=== PATIENT | female | born 1955 | race Caucasian/White ===

== ENCOUNTER 2016-06-27 22:24 | Emergency (ER) | payer SELFPAY ==
[~2016-06-27] VITALS: Ht 149.9 cm; Wt 64.9 kg
[2016-06-27 22:29] VITALS: BP 124/77
--- NOTE | 2016-06-28 01:24 | NUR ---
PATIENT LEFT WITHOUT BEING SEEN BY DR. ALLEN. NO FURTHER CARE PROVIDED FOR PATIENT.
[2016-10-20] MEDS ORDERED: TYLENOL325 M1 PO (13:43)
[2016-10-20] MEDS ORDERED: METFOMIN HYDRO850 MG PO (13:43)
[2016-10-20] MEDS ORDERED: COLACE100 MG PO (13:43)
[2016-10-20] MEDS ORDERED: CLEOCIN HCL300 MG PO (13:43)
[2016-10-20] MEDS ORDERED: BD LACTINEX1.4 MG PO (13:43)
[2016-10-20] MEDS ORDERED: LEVAQUIN750 MG PO (13:43)
[2016-10-20] MEDS ORDERED: FERROUS GLUCON324 MG PO ×2 (14:10→14:13)
== END 2016-06-28 01:24 | disposition left against medical advice (07) ==
LOC: MED 22:24
DX: R10.9 Unspecified abdominal pain (principal); Z53.21 Procedure and treatment not carried out due to patient leaving prior to being seen by health care provider

== ENCOUNTER 2016-07-06 21:06 | Emergency (ER) | payer SELFPAY ==
[~2016-07-06] VITALS: Ht 149.9 cm; Wt 63.0 kg
[2016-07-06 21:25] VITALS: BP 126/60
--- NOTE | 2016-07-06 23:10 | NUR ---
PATIENT PRESENTS TO ED WITH RT FLANK PAIN FOR 1 WEEK NOW, . PT DENIES N/V/D; SKIN IS PINK/WARM/DRY; AAOX4 WITH EVEN AND STEADY GAIT; LUNGS CLEAR BL; HR EVEN AND REGULAR; PT DENIES ANY FEVER, CP, SOB, OR COUGH AT THIS TIME; PATIENT STATES PAIN OF 8/10 AT THIS TIME; VSS; PATIENT POSITIONED FOR COMFORT; HOB ELEVATED; BEDRAILS UP X2; BED DOWN. ER MD MADE AWARE OF PT STATUS.
--- NOTE | 2016-07-06 23:10 | NUR ---
Patient to bed 06.
--- NOTE | 2016-07-06 23:12 | NUR ---
Dr. Solano evaluating patient at bedside.
[2016-07-06] MEDS ORDERED: KETOROLAC 60 MG/2 ML VIAL IM ONE (23:20)
--- NOTE | 2016-07-06 23:20 | NUR ---
VERBAL ORDER FROM DR WOLF TO GIVE 60MG IVP TORADOL INSTEAD OF IM, BC PT BLOOD SUGAR WAS 443
[2016-07-06 23:50] LABS: APPEARANCE,URINE CLEAR (CLEAR); BILIRUBIN,URINE NEGATIVE (NEGATIVE); BLOOD, URINE TRACE-I (NEGATIVE); COLOR,URINE YELLOW (YELLOW); LEUKOCYTE ESTERASE ,URINE NEGATIVE (NEGATIVE); NITRITE, URINE NEGATIVE (NEGATIVE); PROTEIN,URINE NEGATIVE (NEGATIVE); UGLUCOSE 3+ (NEGATIVE); UROBILINOGEN,URINE 0.2 EU/dL (0.2 - 1)
[2016-07-07 00:02] LABS: ALBUMIN 2.6 g/dL (3.4-5.0); ANION GAP 10.7 (8-16); CALCIUM 8.2 mg/dL (8.5-10.1); CARBON DIOXIDE 28.4 mmol/L (21-32); CREATININE 0.7 mg/dL (0.6-1.3); MAGNESIUM 1.9 mg/dL (1.8-2.4); POTASSIUM 4.1 mmol/L (3.5-5.1); TOTAL BILIRUBIN 0.3 mg/dL (0.0-1.0)
[2016-07-07 00:02] LABS: BACTERIA,URINE OCCASSIONAL /HPF (None Seen); RBC,URINE 0-5 (RARE) /HPF (0-5)
[2016-07-07 00:03] LABS: SQUAMOUS EPITHELIAL CELL,UR 4-10 (MOD) /LPF (0-3 (FEW))
[2016-07-07 00:11] LABS: MEAN CORPUSCULAR HEMOGLOBIN 15 pg (27-31); MEAN CORPUSCULAR VOLUME 53 fL (80-94)
[2016-07-07 00:14] LABS: HEMATOCRIT 21.2 % (36-48); MEAN CORPUSCULAR HGB CONC 29 g/dL (33-37); RED BLOOD CELL COUNT(AUTO) 4.02 MIL/uL (4.20-5.40); WHITE BLOOD COUNT (AUTO) 7.4 K/uL (4.8-10.8)
[2016-07-07 00:15] LABS: PLATELET COUNT (AUTO) 479 K/uL (140-450); RED CELL DISTRIBUTION WIDTH 20.5 % (11.6-13.7)
[2016-07-07 00:16] LABS: HEMOGLOBIN 6.1 g/dL (12.0-16.0)
--- NOTE | 2016-07-07 00:16 | NUR ---
PER LAB, HEMAGLOBIN 6.1, HEMATOCRIT 21.2; I MADE THIS KNOWN TO DR. WOLF.
[2016-07-07 00:17] LABS: ANISOCYTOSIS 2+; BASOPHILS % (MANUAL) 1 % (0-2); EOSINOPHILS % (MANUAL) 1 % (0-4); HYPOCHROMASIA 3+; LYMPHOCYTES % (MANUAL) 15 % (20-46); MONOCYTES % (MANUAL) 5 % (5-12); NEUTROPHILS % (MANUAL) 78 (43-65)
[2016-07-07] MEDS ORDERED: KETOROLAC 30 MG/ML VIAL IVP ONE (01:00)
[2016-07-07] MEDS ORDERED: NACL 0.9% 1,000 ML IV ONE (01:00)
[2016-07-07] MEDS ORDERED: INSULIN HUMAN REGULAR 100 UNITS/ML 10 ML VIAL IVP ONE (01:00)
--- NOTE | 2016-07-07 02:19 | NUR ---
IV removed, catheter intact and site benign. Applied folded 4x4 gauze and tape to stop bleeding.
[2016-07-07 02:20] VITALS: BP 122/71
--- NOTE | 2016-07-07 02:20 | NUR ---
Patient discharged with v/s stable. Written and verbal after care instructions given and explained. Patient alert, oriented and verbalized understanding of instructions. Ambulatory with steady gait. All questions addressed prior to discharge. ID band removed. Patient advised to follow up with PMD. Rx of PEPCID 40MG, METFORMIN 500MG, FERROUS SULFATE 325MG given. Patient educated on indication of medication including possible reaction and side effects. Opportunity to ask questions provided and answered.
== END 2016-07-07 02:20 | disposition home or self-care (01) ==
LOC: MED 21:06
DX: R10.13 Epigastric pain (principal); D50.9 Iron deficiency anemia, unspecified; E11.65 Type 2 diabetes mellitus with hyperglycemia; Z90.49 Acquired absence of other specified parts of digestive tract; Z98.890 Other specified postprocedural states
CPT/HCPCS: 36415; 76705; 80053; 81001; 82948; 83690; 83735; 85025; 87086; 96361; 96374; 96375; 99285; J1815; J1885; J7030; Q0092

== ENCOUNTER 2016-08-30 22:28 | Emergency (ER) | payer MEDICAID ==
[~2016-08-30] VITALS: Ht 157.5 cm; Wt 67.1 kg
[2016-08-30 22:36] VITALS: BP 135/63
--- NOTE | 2016-08-31 00:57 | NUR ---
PATIENT TO OF
--- NOTE | 2016-08-31 01:00 | NUR ---
Yevgeniy hess in [facility] - 08/31/16 at 0241 by MEDDCV PATIENT TO ER BED 5.
--- NOTE | 2016-08-31 01:09 | NUR ---
PATIENT BEING EVALUATED BY DR. SKINNER.
[2016-08-31] MEDS ORDERED: NACL 0.9% 1,000 ML IV ONE (01:10)
[2016-08-31] MEDS ORDERED: KETOROLAC 30 MG/ML VIAL IVP ONE (01:10)
--- NOTE | 2016-08-31 02:00 | NUR ---
PATIENT TO ER BED 5.
--- NOTE | 2016-08-31 02:03 | NUR ---
61 Y/O F W/C/O R UPPER ABD PAIN X 1 MTH ON AND OFF. DENIES ANY N/V/D. S/S OF PAIN NOTED ER MADE AWARE.
[2016-08-31] MEDS ORDERED: cefTRIAXone 1,000 MG VIAL ONE (02:11)
[2016-08-31 04:19] VITALS: BP 126/61
--- NOTE | 2016-08-31 04:19 | NUR ---
Patient discharged with v/s stable. Written and verbal after care instructions given and explained. Patient alert, oriented and verbalized understanding of instructions. Ambulatory with steady gait. All questions addressed prior to discharge. ID band removed. Patient advised to follow up with PMD OR RETURN TO ER IF CONDITION WORSENS. Rx of CIPRO AND NAPROSYN given. Patient educated on indication of medication including possible reaction and side effects. Opportunity to ask questions provided and answered.
[2016-10-20] MEDS ORDERED: LEVAQUIN750 MG PO (13:43)
[2016-10-20] MEDS ORDERED: COLACE100 MG PO (13:43)
[2016-10-20] MEDS ORDERED: CLEOCIN HCL300 MG PO (13:43)
[2016-10-20] MEDS ORDERED: METFOMIN HYDRO850 MG PO (13:43)
[2016-10-20] MEDS ORDERED: BD LACTINEX1.4 MG PO (13:43)
[2016-10-20] MEDS ORDERED: TYLENOL325 M1 PO (13:43)
[2016-10-20] MEDS ORDERED: FERROUS GLUCON324 MG PO ×2 (14:10→14:13)
== END 2016-08-31 04:19 | disposition home or self-care (01) ==
LOC: MED 22:28
DX: N39.0 Urinary tract infection, site not specified (principal); R03.0 Elevated blood-pressure reading, without diagnosis of hypertension; E11.9 Type 2 diabetes mellitus without complications
CPT/HCPCS: 36415; 80053; 81001; 85025; 87086; 96365; 96375; 99284; J0696; J1885; J7030; J7060

== ENCOUNTER 2016-10-18 21:00 | Inpatient (IN) | payer MEDICAID ==
[~2016-10-18] VITALS: Ht 149.9 cm; Wt 68.5 kg
[2016-10-18 21:08] VITALS: BP 117/60
--- NOTE | 2016-10-18 22:15 | NUR ---
PATIENT TO ER BED 4
--- NOTE | 2016-10-18 22:20 | NUR ---
61 Y/O F W/C/O R UPPER ABD / BACK PAIN, SLIGLTY DIZZINESS IN MORNINGS X 2 MTHS. PT STATES WAS REFERRED BY PMD TO RECEIVED A BLOOD TRASFUSION D/T LOW HEMOGLOBIN. DENIES ANY SOB, VSS. ER MADE AWARE.
--- NOTE | 2016-10-18 22:42 | NUR ---
Dr. Rodriguez evaluating patient at bedside.
[2016-10-18 23:38] LABS: APPEARANCE,URINE CLEAR (CLEAR); BILIRUBIN,URINE NEGATIVE (NEGATIVE); BLOOD, URINE NEGATIVE (NEGATIVE); COLOR,URINE YELLOW (YELLOW); LEUKOCYTE ESTERASE ,URINE NEGATIVE (NEGATIVE); NITRITE, URINE NEGATIVE (NEGATIVE); PROTEIN,URINE 2+ (NEGATIVE); UGLUCOSE NEGATIVE (NEGATIVE); UROBILINOGEN,URINE 0.2 EU/dL (0.2 - 1)
[2016-10-18 23:49] LABS: MEAN CORPUSCULAR HEMOGLOBIN 16 pg (27-31); MEAN CORPUSCULAR HGB CONC 29 g/dL (33-37); MEAN CORPUSCULAR VOLUME 55 fL (80-94); PLATELET COUNT (AUTO) 577 K/uL (140-450); RED BLOOD CELL COUNT(AUTO) 3.62 MIL/uL (4.20-5.40); RED CELL DISTRIBUTION WIDTH 19.4 % (11.6-13.7); WHITE BLOOD COUNT (AUTO) 6.2 K/uL (4.8-10.8)
[2016-10-18 23:54] LABS: ALBUMIN 2.5 g/dL (3.4-5.0); ANION GAP 8.7 (8-16); CALCIUM 8.2 mg/dL (8.5-10.1); CARBON DIOXIDE 30.4 mmol/L (21-32); CREATININE 0.7 mg/dL (0.6-1.3); HEMOGLOBIN 5.9 g/dL (12.0-16.0); POTASSIUM 4.1 mmol/L (3.5-5.1); TOTAL BILIRUBIN 0.2 mg/dL (0.0-1.0)
[2016-10-18 23:59] LABS: ANISOCYTOSIS 1+; BASOPHILS % (MANUAL) 1 % (0-2); EOSINOPHILS % (MANUAL) 8 % (0-4); HYPOCHROMASIA 3+; LYMPHOCYTES % (MANUAL) 31 % (20-46); MONOCYTES % (MANUAL) 7 % (5-12); NEUTROPHILS % (MANUAL) 53 (43-65)
[2016-10-19 00:03] LABS: RBC,URINE 0-5 (RARE) /HPF (0-5); SQUAMOUS EPITHELIAL CELL,UR 4-10 (MOD) /LPF (0-3 (FEW))
[2016-10-19 00:04] LABS: BACTERIA,URINE 1+ /HPF (None Seen); HYALINE CASTS, URINE 0-10 /LPF (None Seen)
--- NOTE | 2016-10-19 00:07 | NUR ---
PT RESTING IN BED, VSS. AWATING FOR RESULTS. NO S/S OF DISTRESS NOTED AT THE MOMENT.
--- NOTE | 2016-10-19 01:17 | NUR ---
PT RESTING IN BED,VSS. NO S/S OF DISTRESS NOTED AT THE MOMENT. CONTINUES ON MONITOR. LAB CALLED TO F/U ON BLOOD. PER TURRET LATHE TENDER SOMEONE WILL CALL BACK WHEN BLOOD READY. ER NOTIFIED.
[2016-10-19] MEDS ORDERED: MORPHINE SULFATE 2 MG/ML SYR IVP PRN (01:55)
[2016-10-19] MEDS ORDERED: HYDROcodone/APAP 7.5/325 MG 1 TAB PO PRN (01:55)
[2016-10-19] MEDS ORDERED: ONDANSETRON 4 MG/2 ML VIAL IM/IVP PRN (01:55)
[2016-10-19] MEDS ORDERED: NACL 0.9% 1,000 ML IV SCH (01:55)
[2016-10-19] MEDS ORDERED: DOCUSATE SODIUM 100 MG GELCAP PO PRN (01:55)
[2016-10-19] MEDS ORDERED: ACETAMINOPHEN 325 MG TAB PO PRN (01:55)
[2016-10-19] MEDS ORDERED: FERRIC GLUCONATE 125 MG in NACL 0.9% 100 ML IV SCH ×2 (01:55→15:00)
[2016-10-19] MEDS ORDERED: LACTULOSE 20 GM/30 ML UDC PO ONE (01:55)
--- NOTE | 2016-10-19 01:55 | NUR ---
Cephulac po times one dose scheduled for 0155 not given because patient was still in Emergency Department at this time. Patient arrived to Tele unit at 0330 and next dose is at 5am dose is too close.Will administer the 5am dose.
--- NOTE | 2016-10-19 02:02 | NUR ---
BLOOD TRASFUSION INITIATED. VERIFIED BY ROBERTO CARLOS ROLON RN, AND ME PRIMARY NURSE.
--- NOTE | 2016-10-19 02:20 | NUR ---
PT RESTING IN BED, VSS. NO S/S OF DISTRESS NOTED SO FAR, VERBALIZED NO INCREASED IN LOW BACK PAIN. WILL CONT TO MONITOR.
--- NOTE | 2016-10-19 02:34 | NUR ---
VSS REMAIN STABLE, NO S/S OF DSITRESS NOTED AT THE MOMENT. WILL CONT TO MONITOR.
--- NOTE | 2016-10-19 02:42 | NUR ---
Patient will be admitted to care of DR CATES. Admited to TELEMETRY. Will go to room 111. Belongings list completed. Report to NARENDRA SPENCER RN.
[2016-10-19] MEDS ORDERED: IBUPROFEN 600 MG TAB PO ONE (02:50)
--- NOTE | 2016-10-19 03:15 | NUR ---
PT RESTING IN BED RESIDENT MD EVALUATING PT AT BEDSIDE. NO S/S OF DISTRESS NOTED SO FAR.
--- NOTE | 2016-10-19 03:16 | NUR ---
CALLED RECEIVED FROM NANCY DOLL RECEIVING RN IN TELEMETRY FLOOR. PER FOOR NURSE, SHE IS READY TO RECEIVE PT ON FLOOR. CHARGE NURSE NOTIFIED.
[2016-10-19] MEDS ORDERED: INSULIN LISPRO SLIDING SCALE 100 UNITS/ML VIAL SUBQ PRN (03:25)
--- NOTE | 2016-10-19 03:26 | NUR ---
PT TAKEN TO TELEMETRY FLOOR BY NANCY CHUN AND LUDA LOPEZ VIA MICHELL. HOT TAMALE WORKER IN BED. NO S/S OF DISTRESS NOTED UPON TRASFER.
--- NOTE | 2016-10-19 03:30 | NUR ---
Patient's Plan of Care was discussed and reviewed with GAUTAM: TASHA
--- NOTE | 2016-10-19 03:30 | NUR ---
PATIENT ARRIVED TO THE FLOOR IN A GURNEY WITH FIRST UNIT OF BLOOD ONGOING. ADMIT DX ABD PAIN.PATIENT IS AWARE ALERT ORIENTED SPEAKS MOSTLY SAO TOMEAN UNDERSTANDS VERY LITTLE BENGALI.PATIENT LET US DO SKIN ASSESSMENT WITH DRILL HAND NURSE GIOVANNY AND PATIENT SKIN IS CURRENTLY INTACT.VITALS SIGNS TAKEN AND CURRENTLY WNL PATIENT DENIES ANY SOB OR FEELING DIZZY.PATIENT DENIES ANY HX OF FALLS BUT PLACED ON FALL PRECAUTION DUE TO THE ANEMIA. PATIENT HAS NO COMPLAINS OF PAIN AT THIS TIME.PLAN OF CARE EXPLAINED TO THE PATIENT PATIENT VERBALIZES UNDERSTANDING.PATIENT ORIENTED TO CALL LIGHT AND VISITING HOURS.PATIENT VERBALIZES UNDERSTANDING.
--- NOTE | 2016-10-19 03:35 | NUR ---
MRSA OF THE NARES HAS BEEN COLLECTED WILL BE SEND TO THE LAB.
[2016-10-19 03:43] LABS: PARTIAL THROMBOPLASTIN TIME 23.4 secs (22-35.6); PROTHROMBIN TIME 9.8 secs (10.8-13.4)
--- NOTE | 2016-10-19 04:00 | NUR ---
PATIENT IS CURRENTLY RESTING IN BED EDUCATED ON HOW TO USE THE INCENTIVE SPIROMETER AND THE PURPOSE OF THE INCENTIVE SPIROMETER RETURN DEMO DONE BY THE PATIENT.
[2016-10-19 04:10] LABS: CHOL/HDL RATIO 2.4 (1-4.5); FREE T4 (FREE THYROXINE) 1.03 ng/dL (0.76-1.46); MAGNESIUM 1.9 mg/dL (1.8-2.4); PHOSPHORUS 3.8 mg/dL (2.5-4.9); THYROID STIMULATING HORMONE 2.42 uIU/mL (0.34-3.74)
--- NOTE | 2016-10-19 04:15 | NUR ---
PATIENT PLACED ON SCD'S EDUCATION GIVEN ON SCD'S AND THE IMPORTANCE OF WEARING THEM FOR DVT PAROPHALAXIS PATIENT VERBALIZES UNDERSTANDING.
[2016-10-19] MEDS ORDERED: CLINDAMYCIN 600 MG/4 ML VIAL ONE (04:41)
[2016-10-19 04:50] VITALS: BP 120/56
[2016-10-19] MEDS ORDERED: CLINDAMYCIN 600 MG in DEXTROSE 5% 50 ML IV ONE (05:00)
[2016-10-19] MEDS ORDERED: SODIUM CHLORIDE FLUSH 10 ML SYR IVF SCH (05:00)
[2016-10-19] MEDS: LACTULOSE 20 GM/30 ML UDC PO SCH ×3 (05:33→20:21)
--- NOTE | 2016-10-19 05:40 | NUR ---
RESIDENT JOHANA AWARE AND INFORM THAT PATIENT IS GETTING SECOND UNIT OF BLOOD AND ASKED IF SHE STILL WANTS LAB DRAWS NOW OR TWO HOURS AFTER BLOOD TRANSFUSION.MD AGREED TO DO BLOOD DRAW TWO HOURS POST SECOND UNIT OF BLOOD.SHOE REPAIRER APPRENTICE AWARE.
--- NOTE | 2016-10-19 05:50 | NUR ---
PATIENT IS CURRENTLY STABLE RESTING IN BED SECOND UNIT OF BLOOD ONGOING NO ADR NOTED VITAL SIGNS CURRENTLY STABLE.
--- NOTE | 2016-10-19 06:07 | NUR ---
RESIDENT JOHANA INFORMED THAT PATIENT DOESN'T HAVE ORDER FOR ACCUCHECKS SAID SHE PUT THE ORDER IN.WILL FOLLOW UP.
--- NOTE | 2016-10-19 06:35 | NUR ---
PATIENT BLOOD SUGAR CHECK DONE RESULT IS 99 PATIENT CONTINUES TO BE WELL NO ADR FROM BLOOD TRANSFUSION.PATIENT DENIES PAIN.WILL CONTINUE TO MONITOR.
--- NOTE | 2016-10-19 07:04 | NUR ---
PATIENT STABLE REPORT ENDORSED TO NANCY STEWART.SHE WILL RESUME CARE OF THE PATIENT.
--- NOTE | 2016-10-19 07:10 | NUR ---
RECEIVED REPORT FROM NANCY FERNANDEZ. PT IS RESTING IN BED, A/OX4, AMBULATORY, SKIN IS INTACT, PT HAS IV ON RT AC, SECOND UNIT OF BLOOD INFUSING AT THIS TIME, IV ALSO ON THE RT FA, PATENT, INTACT, FLUSHING WELL, NO S/S OF RESPIRATORY DISTRESS OR DISCOMFORT NOTED, SAFETY/FALL PRECAUTIONS ARE IN PLACE, DISCUSSED PLAN OF CARE WITH PT, PT VERBALIZED UNDERSTANDING, CALL LIGHT IS WITHIN REACH, WILL CONTINUE TO MONITOR.
[2016-10-19] MEDS ORDERED: BUDESONIDE 0.25 MG/2 ML NEBU INH SCH (07:30)
[2016-10-19] MEDS: IPRATROPIUM 0.02% 0.5 MG/2.5 ML NEBU INH SCH ×2 (07:31→10:27)
[2016-10-19] MEDS: ALBUTEROL 0.083% 2.5 MG/3 ML NEBU INH SCH ×2 (07:31→10:27)
[2016-10-19 08:00] VITALS: BP 120/63
--- NOTE | 2016-10-19 08:11 | NUR ---
CALLED [employer] AT [phone], I REACHED THEIR VOICEMAIL I LET THEM KNOW I WAS CALLING FROM [facility] REGARDING A PATIENT WHO THIS MORNING, I ASKED THEM TO PLEASE GIVE ME A CALL, I LEFT MY NAME, CALL BACK NUMBER WITH MY EXTENSION. Addendum: 10/19/16 at 0816 by Anna Gill RN WRONG PATIENT, THIS ENTRY DOES NOT APPLY TO THIS PATIENT.
--- NOTE | 2016-10-19 08:50 | NUR ---
PATIENT'S BLOOD TRANSFUSION COMPLETED AT THIS TIME. PT TOLERATED WELL NO S/S OF RESPIRATORY DISTRESS OR DISCOMFORT NOTED, CALL LIGHT WITHIN REACH, WILL CONTINUE TO MONITOR.
[2016-10-19] MEDS: LACTOBACILLUS RHAMNOSUS GG 1 EACH CAP PO SCH (09:01)
--- NOTE | 2016-10-19 09:05 | NUR ---
DUE MEDICATIONS GIVEN AT THIS TIME, CALL LIGHT WITHIN REACH, WILL CONTINUE TO MONITOR.
--- NOTE | 2016-10-19 11:30 | NUR ---
PT SLEEPING IN BED AT THIS TIME, CALL LIGHT WITHIN REACH.
[2016-10-19 12:00] VITALS: BP 113/57
[2016-10-19 12:11] LABS: HEMATOCRIT 25.1 % (36-48); HEMOGLOBIN 7.6 g/dL (12.0-16.0); MEAN CORPUSCULAR HEMOGLOBIN 19 pg (27-31); MEAN CORPUSCULAR HGB CONC 30 g/dL (33-37); MEAN CORPUSCULAR VOLUME 62 fL (80-94); PLATELET COUNT (AUTO) 501 K/uL (140-450); RED BLOOD CELL COUNT(AUTO) 4.05 MIL/uL (4.20-5.40); RED CELL DISTRIBUTION WIDTH 30.1 % (11.6-13.7); WHITE BLOOD COUNT (AUTO) 6.8 K/uL (4.8-10.8)
[2016-10-19 12:33] LABS: ALBUMIN 2.3 g/dL (3.4-5.0); ANION GAP 10.5 (8-16); CALCIUM 7.8 mg/dL (8.5-10.1); CARBON DIOXIDE 25.1 mmol/L (21-32); CREATININE 0.6 mg/dL (0.6-1.3); POTASSIUM 3.6 mmol/L (3.5-5.1); TOTAL BILIRUBIN 0.2 mg/dL (0.0-1.0); TOTAL PROTEIN, SERUM 7.2 g/dL (6.4-8.2)
[2016-10-19 12:49] LABS: ANISOCYTOSIS 1+; BAND % (MANUAL) 0 % (0-8); BASOPHILS % (MANUAL) 0 % (0-2); EOSINOPHILS % (MANUAL) 0 % (0-4); LYMPHOCYTES % (MANUAL) 19 % (20-46); MONOCYTES % (MANUAL) 7 % (5-12); NEUTROPHILS % (MANUAL) 74 (43-65); PLATELET ESTIMATE ADEQUATE
--- NOTE | 2016-10-19 13:27 | NUR ---
CARTOGRAPHY PROFESSOR IS AT PATIENT'S BEDSIDE.
--- NOTE | 2016-10-19 13:30 | NUR ---
RECEIVED CALL FROM PHARMACY THEY WERE CALLING BECAUSE TO CLARIFY AN ORDER THAT WAS ENTERED LAST NIGHT FOR FERROUS GLUCONATE AND WAS STILL PENDING, NUMBER OF DOSES WAS MISSING. I WENT AHEAD AND LET THE RESIDENT DOCTOR KNOW, SHE SAID SHE WOULD FIX IT.
[2016-10-19] MEDS ORDERED: ALBUTEROL 0.083% 2.5 MG/3 ML NEBU INH PRN (13:55)
[2016-10-19] MEDS ORDERED: BUDESONIDE 0.25 MG/2 ML NEBU INH PRN (13:55)
[2016-10-19] MEDS ORDERED: IPRATROPIUM 0.02% 0.5 MG/2.5 ML NEBU INH PRN (14:00)
--- NOTE | 2016-10-19 15:25 | NUR ---
PT IS RESTING IN BED, NO S/S OF RESPIRATORY DISTRESS OR DISCOMFORT NOTED, CALL LIGHT WITHIN REACH.
[2016-10-19 16:00] VITALS: BP 123/61
[2016-10-19] MEDS: BLOOD GLUCOSE MONITORING 1 DEV DEV FS SCH ×2 (16:40→20:23)
--- NOTE | 2016-10-19 17:25 | NUR ---
PT IS RESTING IN BED WATCHING TV, CALL LIGHT IS WITHIN REACH.
--- NOTE | 2016-10-19 19:15 | NUR ---
ENDORSED PT TO LVN. LAVON FOR CONTINUITY OF CARE. PT STABLE AT THIS TIME.
--- NOTE | 2016-10-19 19:16 | NUR ---
ALERT PT, UP WALKING IN HALLWAY. NO DISTRESS/SOB/WHEEZING NOTED AT THIS TIME. NO INDICATION FOR HHN PRN TX
--- NOTE | 2016-10-19 19:17 | NUR ---
PATIENT IS CURRENTLY AWAKE ALERT WAS WALKING AROUND THE NURSES STATION EARLIER AROUND THE HALLWAY NOW SHE IS BACK IN HER ROOM.PATIENT DENIES PAIN AND DISCOMFORT AT THIS TIME. PATIENT STATES I WAS ABLE TO HAVE TWO BOWEL MOVEMENTS TODAY.PATIENT HAS NO COMPLAINS OF SOB PATIENT CONTINUES TO BE ENCOURAGED TO USE THE INCENTIVE SPIROMETER.CALL LIGHT WITHIN REACH.
--- NOTE | 2016-10-19 19:20 | NUR ---
Patient's Plan of Care was discussed and reviewed with RAILROAD REPAIRER: LAVON CORDOVA
[2016-10-19 20:00] VITALS: BP 127/66
--- NOTE | 2016-10-19 20:25 | NUR ---
PATIENT EDUCATED ON THE IMPORTANCE OF TAKING HER ROUTINE MEDICATION PATIENT VERBALIZES UNDERSTANDING AND TOOK HER ROUTINE MEDICATION.
[2016-10-20] VITALS: BP 114/66
--- NOTE | 2016-10-20 00:05 | NUR ---
PATIENT IS CURRENTLY SLEEPING IN BED NO DISTRESS WILL CONTINUE TO MONITOR.CALL LIGHT WITHIN REACH.
--- NOTE | 2016-10-20 02:27 | NUR ---
PATIENT IS CURRENTLY SLEEPING IN BED.
--- NOTE | 2016-10-20 03:35 | NUR ---
PATIENT IS CURRENTLY AWAKE WENT TO THE BATHROOM AND BACK TO BED.PATIENT DENIES PAIN AT THIS TIME.NEEDS MET.
[2016-10-20 04:00] VITALS: BP 130/68
[2016-10-20] MEDS: LACTULOSE 20 GM/30 ML UDC PO SCH (05:00)
[2016-10-20 06:01] LABS: ANION GAP 13.3 (8-16); CALCIUM 8.3 mg/dL (8.5-10.1); CARBON DIOXIDE 24.2 mmol/L (21-32); CREATININE 0.6 mg/dL (0.6-1.3); POTASSIUM 3.5 mmol/L (3.5-5.1)
--- NOTE | 2016-10-20 06:05 | NUR ---
PATIENT RESTING COMFORTABLY IN BED IN NO DISTRESS WILL CONTINUE TO MONITOR.
[2016-10-20 06:14] LABS: BASOPHILS # (AUTO) 0.1 K/uL (0.00-0.22); BASOPHILS % (AUTO) 1.2 % (0.0-2.0); EOSINOPHILS # (AUTO) 0.2 K/uL (0-0.4); EOSINOPHILS % (AUTO) 2.6 % (0.0-4.0); HEMATOCRIT 29.6 % (36-48); HEMOGLOBIN 8.9 g/dL (12.0-16.0); MEAN CORPUSCULAR HEMOGLOBIN 19 pg (27-31); MEAN CORPUSCULAR HGB CONC 30 g/dL (33-37); MEAN CORPUSCULAR VOLUME 63 fL (80-94); MONOCYTES # (AUTO) 0.5 K/uL (0.8-1.0); MONOCYTES % (AUTO) 6.1 % (1.7-9.3); NEUTROPHILS # (AUTO) 5.5 K/uL (1.8-7.7); NEUTROPHILS % (AUTO) 66.1 % (42.2-75.2); RED BLOOD CELL COUNT(AUTO) 4.69 MIL/uL (4.20-5.40)
[2016-10-20] MEDS: BLOOD GLUCOSE MONITORING 1 DEV DEV FS SCH ×2 (06:28→11:58)
--- NOTE | 2016-10-20 06:48 | NUR ---
PATIENT HAS BEEN SCREENED AND CATEGORIZED HIGH NUTRITION RISK. PATIENT WILL BE SEEN WITHIN 1-2 DAYS OF ADMISSION. 10/19/16-10/20/16 LOBO FINNEY MS, RDN
[2016-10-20 07:07] LABS: PLATELET COUNT (AUTO) 561 K/uL (140-450)
[2016-10-20 07:08] LABS: WHITE BLOOD COUNT (AUTO) 8.3 K/uL (4.8-10.8)
[2016-10-20 07:09] LABS: ANISOCYTOSIS 1+; HYPOCHROMASIA 1+; OVALOCYTES 1+; POIKILOCYTOSIS 1+
[2016-10-20 07:10] LABS: ROULEAU 1+
--- NOTE | 2016-10-20 07:32 | NUR ---
PATIENT STABLE REPORT ENDORSED AT BEDSIDE TO NANCY RUEDA SHE WILL RESUME CARE OF THE PATIENT.
--- NOTE | 2016-10-20 07:33 | NUR ---
PT AWAKE AND ALERT, BURUNDIAN SPEAKING. NO SIGNS OF ACUTE DISTRESS. ON ROOM AIR. BOWEL SOUNDS ACTIVE IN ALL 4 QUADRANTS. BOWEL AND BLADDER CONTINENCE. SKIN INTACT. AMBULATORY WITH BRP. PATIENT DENIES PAIN AT THIS TIME. RE-ORIENTED PATIENT TO HOSPITAL AND TO UNIT, PT VERBALIZED UNDERSTANDING. BED IN LOW POSITION WITH BILATERAL HALF SIDE RAILS UP, CALL LIGHT WITHIN REACH.
[2016-10-20 08:00] VITALS: BP 102/55
[2016-10-20] MEDS: LACTOBACILLUS RHAMNOSUS GG 1 EACH CAP PO SCH (09:00)
[2016-10-20 10:01] LABS: T4 (THYROXINE) 8.8 ug/dL (4.5-12.0)
[2016-10-20 12:00] VITALS: BP 121/65
[2016-10-20] MEDS ORDERED: LACTULOSE 20 GM/30 ML UDC PO PRN (12:30)
--- NOTE | 2016-10-20 12:30 | NUR ---
PT SEEN BY DR PARRA, NO NEW ORDERS AT THIS TIME.
[2016-10-20] MEDS ORDERED: [UNRECOGNIZED DRUG - CODE] PO (13:43)
[2016-10-20] MEDS ORDERED: DOCU-264 PO (13:43)
[2016-10-20] MEDS ORDERED: LEVO750T2 PO (13:43)
[2016-10-20] MEDS ORDERED: ACET-2619 PO (13:43)
[2016-10-20] MEDS ORDERED: LACT1.4C PO (13:43)
[2016-10-20] MEDS ORDERED: CLIN300C2 PO (13:43)
--- NOTE | 2016-10-20 14:00 | NUR ---
RECEIVED DISCHARGE ORDER, NOTED, WILL CARRY OUT.
[2016-10-20] MEDS ORDERED: FERR324T11 PO ×2 (14:10→14:13)
[2016-10-20 16:00] VITALS: BP 106/59
--- NOTE | 2016-10-20 16:45 | NUR ---
PT AWAKE AND ALERT, NO SIGNS OF ACUTE DISTRESS. EDUCATED PATIENT ON DISCHARGE INSTRUCTIONS INCLUDING SIGNS AND SYMPTOMS OF WORSENING CONDITION, FOLLOW UP WITH PCP WITHIN 3 DAYS, NEW PRESCRIPTIONS AND INFORMATION ON ANEMIA AND PYELONEPHRITIS. PT VERBALIZED UNDERSTANDING. CUT OFF WRIST BANDS AND TOOK OFF TELE MONITOR. D/C'D BOTH IVS. PATIENT DENIES PAIN. ESCORTED PATIENT OUT FRONT LOBBY, TO GO HOME VIA PRIVATE AUTO WITH DAUGHTER.
[2016-10-21 09:10] LABS: HEMOGLOBIN A1C 7.2 % (4.8-5.6)
[2016-10-22 06:27] LABS: FOLIC ACID 13.1 ng/mL (>3.0)
== END 2016-10-20 16:45 | disposition home or self-care (01) | DRG 137 ==
LOC: MED 21:00 → MIC 10-19 02:04 → MTU 10-19 02:27
PROVIDERS: ADMIT Student in an Organized Health Care Education/Training Program; ATTEND Student in an Organized Health Care Education/Training Program
PROC: 30233N1 Transfusion of Nonautologous Red Blood Cells into Peripheral Vein, Percutaneous Approach (ICD-10-PCS; principal; 2016-10-19)
PROC: B246ZZZ Ultrasonography of Right and Left Heart (ICD-10-PCS; 2016-10-20)
DX: J69.0 Pneumonitis due to inhalation of food and vomit (principal); N17.0 Acute kidney failure with tubular necrosis; E43 Unspecified severe protein-calorie malnutrition; D68.59 Other primary thrombophilia; E11.40 Type 2 diabetes mellitus with diabetic neuropathy, unspecified; E11.65 Type 2 diabetes mellitus with hyperglycemia; M06.9 Rheumatoid arthritis, unspecified; M43.16 Spondylolisthesis, lumbar region; M47.896 Other spondylosis, lumbar region; K56.41 Fecal impaction; R91.1 Solitary pulmonary nodule; J98.11 Atelectasis; D50.9 Iron deficiency anemia, unspecified; R80.9 Proteinuria, unspecified; K21.9 Gastro-esophageal reflux disease without esophagitis; Z98.51 Tubal ligation status; Z90.49 Acquired absence of other specified parts of digestive tract; Z87.891 Personal history of nicotine dependence; Z68.30 Body mass index [BMI] 30.0-30.9, adult
CPT/HCPCS: 36415; 71010; 80048; 80053; 81001; 82150; 82607; 82728; 82746; 82948; 83036; 83540; 83690; 83735; 83880; 84100; 84436; 84439; 84443; 84479; 84484; 85025; 85045; 85610; 85730; 86886; 86900; 86901; 86920; 87081; 87086; 93005; 93925; 93970; 94640; 99285; J3490; J7030; J7060; J7613; J7626; J7644; P9016; Q0092

== ENCOUNTER 2017-09-02 18:26 | Inpatient (IN) | payer MEDICAID ==
[~2017-09-02] VITALS: Ht 152.4 cm; Wt 80.7 kg
[~2017-09-02 18:26] MED LIST: ACET-2619 PO; CLIN300C2 PO; DOCU-300 PO; FERR324T11 PO; LACT1.4C PO; LEVO750T2 PO; [UNRECOGNIZED DRUG - CODE] PO
[2017-09-02 18:45] VITALS: BP 126/62
[2017-09-02] MEDS ORDERED: NACL 0.9% 1,000 ML IV ONE (19:05)
[2017-09-02] MEDS ORDERED: INSULIN REGULAR, HUMAN 100 UNIT/ML VIAL SUBQ ONE (19:05)
--- NOTE | 2017-09-02 19:05 | NUR ---
1ST BS 5[address] BS [address] GILLILAND NOTIFIED
--- NOTE | 2017-09-02 19:49 | NUR ---
62Y/F C/O RUQ AND URINARY FREQUENCY X1 WEEK. ABD IS ROUND, SOFT, TENDER TO RUQ, ACTIVE BS X4. NORMAL BM . PT STATES SHE HAS BEEN USING THE RESTROOM EVERY 30MIN AT HOME FOR PAST WEEK. PT DENIES ANY OTHER UTI SYMPTOMS THAN FREQUENCY. PT IS LAYING IN BED, COMFORT NEEDS MET, WILL CONTINUE TO MONITOR.
[2017-09-02 20:00] LABS: APPEARANCE,URINE CLEAR (CLEAR); BILIRUBIN,URINE NEGATIVE (NEGATIVE); BLOOD, URINE TRACE-L (NEGATIVE); COLOR,URINE YELLOW (YELLOW); LEUKOCYTE ESTERASE ,URINE NEGATIVE (NEGATIVE); NITRITE, URINE NEGATIVE (NEGATIVE); UGLUCOSE 2+ (NEGATIVE)
[2017-09-02 20:15] LABS: RBC,URINE 3-10 (FEW) /HPF (0-5); WBC,URINE 0-5 (RARE) /HPF (0-5)
[2017-09-02 20:34] LABS: ACETONE, SERUM NEGATIVE (NEGATIVE)
[2017-09-02 20:39] LABS: ALBUMIN 2.6 g/dL (3.4-5.0); ANION GAP 11.7 (8-16); ASPARTATE AMINOTRANSFERASE 11 U/L (15-37); CARBON DIOXIDE 26.2 mmol/L (21-32); CHLORIDE 96 mmol/L (98-107); GFR ARICAN-AMERICAN 73 mL/min (>90); POTASSIUM 3.9 mmol/L (3.5-5.1); SODIUM SERUM 130 mmol/L (136-145); TOTAL BILIRUBIN 0.3 mg/dL (0.0-1.0); UREA NITROGEN, BLOOD 20 mg/dL (7-18)
[2017-09-02 20:43] LABS: GLUCOSE 634 mg/dL (74-106)
[2017-09-02 21:07] LABS: BASOPHILS # (AUTO) 0.1 K/uL (0.00-0.22); BASOPHILS % (AUTO) 0.7 % (0.0-2.0); EOSINOPHILS % (AUTO) 0.6 % (0.0-4.0); HEMATOCRIT 24.3 % (36-48); HEMOGLOBIN 7.1 g/dL (12.0-16.0); LYMPHOCYTES # (AUTO) 1.6 K/uL (2.5-16.5); LYMPHOCYTES % (AUTO) 21.1 % (20.5-51.1); MEAN CORPUSCULAR HEMOGLOBIN 17 pg (27-31); MEAN CORPUSCULAR HGB CONC 29 g/dL (33-37); MEAN CORPUSCULAR VOLUME 57.8 fL (80-94); MONOCYTES # (AUTO) 0.5 K/uL (0.8-1.0); MONOCYTES % (AUTO) 6.4 % (1.7-9.3); NEUTROPHILS # (AUTO) 5.3 K/uL (1.8-7.7); NEUTROPHILS % (AUTO) 71.2 % (42.2-75.2); PLATELET COUNT (AUTO) 350 K/uL (140-450); RED BLOOD CELL COUNT(AUTO) 4.21 MIL/uL (4.20-5.40); RED CELL DISTRIBUTION WIDTH 20.3 % (11.6-13.7); WHITE BLOOD COUNT (AUTO) 7.5 K/uL (4.8-10.8)
[2017-09-02] MEDS ORDERED: INSULIN REGULAR, HUMAN 100 UNIT/ML VIAL IVP ONE (21:15)
--- NOTE | 2017-09-02 22:15 | NUR ---
PT SENT TO CT WITH TECH VIA W/C AAOX4 AT THIS TIME
--- NOTE | 2017-09-02 22:27 | NUR ---
BS 390, 8 UNITS IVP GIVEN-NADR AT THIS TIME.
[2017-09-02] MEDS ORDERED: MORPHINE SULFATE 4 MG/ML SYR IVP PRN (23:20)
[2017-09-02] MEDS ORDERED: DOCUSATE SODIUM 100 MG GELCAP PO PRN (23:20)
[2017-09-02] MEDS ORDERED: ONDANSETRON 4 MG/2 ML VIAL IM/IVP PRN (23:20)
[2017-09-02] MEDS ORDERED: ACETAMINOPHEN 325 MG TAB PO PRN (23:20)
[2017-09-02] MEDS ORDERED: HYDROcodone/APAP 7.5/325 MG 1 TAB PO PRN (23:20)
--- NOTE | 2017-09-02 23:44 | NUR ---
Pt transferred to Tele via .
[2017-09-02 23:45] VITALS: BP 119/38
--- NOTE | 2017-09-02 23:45 | NUR ---
ADMITTED A 62F FROM ER. CAME BY ERIN. AMBULATORY . ON GAS PUMPER. CAME DUE TO DM OUT OF CONTROL. FREQUENCY OF URINATION, NAUSEA, WITH RUQ ABDOMINAL PAIN AND SOB. THOUGH PT DENIES ANY SOB A THIS TIME. O2 SAT 98% ON ROOM AIR. SHE SAD SHE HAS ARTHRITIS ON HANDS, LEGS,NECK BUT DENIES ANY PAIN AT THIS TIME. ORIENTED TO HOSPITAL ROUTINES, PLACED COMFORTABLY IN BED. PLACED CALL LIGHT WITHIN EASY REACH. BED ON LOW POSITION. PLAN OF CARE DISCUSSED AN VERBALIZED UNDERSTANDING. WILL FOLLOW UP ADMIT ORDERS. WILL ALSO CONTINUE TO MONITOR.
--- NOTE | 2017-09-02 23:49 | NUR ---
Patient will be admitted to care of DR. PARRA. Admited to TELE. Will go to room 111-B. Belongings list completed. Report to VICK.
[2017-09-03] LABS: PROTHROMBIN TIME 10.4 secs (10.8-13.4)
[2017-09-03 00:07] LABS: CHOL/HDL RATIO 3.5 (1-4.5); MAGNESIUM 1.6 mg/dL (1.8-2.4); PHOSPHORUS 3.5 mg/dL (2.5-4.9); THYROID STIMULATING HORMONE 1.17 uIU/mL (0.34-3.74)
[2017-09-03] MEDS ORDERED: DEXTROSE 50% 50 ML SYR IVP PRN (00:20)
[2017-09-03 00:45] LABS: BARBITURATE, URINE NEG. ng/ml (NEG <=200); BENZODIAZEPINE, URINE NEG. ng/mL (NEG <=200); CANNABINOID, URINE NEG. ng/mL (NEG <=50); COCAINE, URINE NEG. ng/mL (NEG <=300); OPIATE, URINE NEG. ng/mL (NEG <=2000); PHENCYCLIDINE SCREEN,URINE NEG. ng/mL (NEG <=25)
[2017-09-03] MEDS: NACL 0.9% 1,000 ML IV SCH ×3 (01:02→15:56)
--- NOTE | 2017-09-03 01:02 | NUR ---
IVF NS @120 ML /HR JUST STARTED ORDERED.
--- NOTE | 2017-09-03 03:00 | NUR ---
MADE ROUNDS. PT ASLEEP. NO S/S OF ANY DISCOMFORT NOR PAIN NOTED. WILL CONTINUE TO MONITOR.
[2017-09-03 04:30] VITALS: BP 107/39
--- NOTE | 2017-09-03 05:00 | NUR ---
TELE MONITORING DC'D PER MD ORDER. . PT IS NOW MED SURG. WILL STILL CONTINUE TO MONITOR.
[2017-09-03] MEDS ORDERED: SODIUM FERRIC GLUCONATE 12.5 MG/ML AMP IV ONE (05:46)
--- NOTE | 2017-09-03 05:48 | NUR ---
FERRLECIT IVPB STARTED ORDERED X ONE. WILL MONITOR DURING INFUSION.
[2017-09-03] MEDS ORDERED: SODIUM FERRIC GLUCONATE 125 MG in NACL 0.9% 100 ML IV ONE (06:00)
[2017-09-03] MEDS: BLOOD GLUCOSE MONITORING 1 DEV DEV FS SCH ×4 (06:04→21:10)
[2017-09-03] MEDS: INSULIN LISPRO SLIDING SCALE 100 UNITS/ML VIAL SUBQ PRN ×4 (06:11→21:18)
--- NOTE | 2017-09-03 06:11 | NUR ---
BLOOD SUGAR WAS CHECKED RESULT 181, INSULIN COVERAGE GIVEN SUBQ.
[2017-09-03] MEDS: METOCLOPRAMIDE 10 MG TAB PO SCH ×3 (06:23→16:12)
[2017-09-03 07:19] LABS: BASOPHILS # (AUTO) 0.1 K/uL (0.00-0.22); BASOPHILS % (AUTO) 0.8 % (0.0-2.0); EOSINOPHILS # (AUTO) 0.2 K/uL (0-0.4); EOSINOPHILS % (AUTO) 2.8 % (0.0-4.0); HEMATOCRIT 25.1 % (36-48); HEMOGLOBIN 7.4 g/dL (12.0-16.0); LYMPHOCYTES # (AUTO) 2.6 K/uL (2.5-16.5); LYMPHOCYTES % (AUTO) 35.5 % (20.5-51.1); MEAN CORPUSCULAR HEMOGLOBIN 17 pg (27-31); MEAN CORPUSCULAR HGB CONC 29 g/dL (33-37); MEAN CORPUSCULAR VOLUME 57.6 fL (80-94); MONOCYTES # (AUTO) 0.5 K/uL (0.8-1.0); MONOCYTES % (AUTO) 6.5 % (1.7-9.3); NEUTROPHILS % (AUTO) 54.4 % (42.2-75.2); PLATELET COUNT (AUTO) 374 K/uL (140-450); RED BLOOD CELL COUNT(AUTO) 4.36 MIL/uL (4.20-5.40); RED CELL DISTRIBUTION WIDTH 19.9 % (11.6-13.7); WHITE BLOOD COUNT (AUTO) 7.4 K/uL (4.8-10.8)
--- NOTE | 2017-09-03 07:20 | NUR ---
ENDORSED PT IN STABLE CONDITION TO AM NURSE.
--- NOTE | 2017-09-03 07:21 | NUR ---
RECEIVED REPORT FROM THE MEAL MILLER NURSE AT BEDSIDE FOR CONTINUITY OF CARE. PT IS AWAKE AND ORIENTED. INTRODUCED SELF AND UPDATED THE BOARD. PT IS ON MS, AMBULATORY, SKIN INTACT, LBM: 09/01/17, IV ON R FA 22G NS AT 120ML/HR. V/S WITHIN NORMAL RANGE. DENIES ANY PAIN AT THIS TIME. PLAN FOR TODAY: DOPPLER AND ECHO. WILL CONTINUE TO MONITOR PT.
[2017-09-03 07:34] LABS: ANION GAP 12.6 (8-16); CARBON DIOXIDE 23.6 mmol/L (21-32); CREATININE 0.6 mg/dL (0.6-1.3); POTASSIUM 3.2 mmol/L (3.5-5.1)
[2017-09-03 08:20] LABS: MAGNESIUM 1.6 mg/dL (1.8-2.4); PHOSPHORUS 3.2 mg/dL (2.5-4.9)
[2017-09-03] MEDS ORDERED: metFORMIN 850 MG TAB PO SCH (09:00)
[2017-09-03] MEDS: FERROUS GLUCONATE 324 MG TAB PO SCH ×2 (09:14→21:15)
--- NOTE | 2017-09-03 09:21 | NUR ---
ADMINISTERED MORNING MEDS. PT TOLERATED WELL. EATING BREAKFAST. WILL CONTINUE TO MONITOR PT.
--- NOTE | 2017-09-03 09:23 | NUR ---
PATIENT HAS BEEN SCREENED AND CATEGORIZED HIGH NUTRITION RISK. PATIENT WILL BE SEEN WITHIN 1-2 DAYS OF ADMISSION. 09/03/17 09/04/[address]
--- NOTE | 2017-09-03 10:15 | NUR ---
NOTIFIED MD OF LOW K LEVEL 3.2. AWARE.
[2017-09-03 10:45] VITALS: BP 135/53
--- NOTE | 2017-09-03 11:31 | NUR ---
ADMINISTERED SCHEDULED MED. CHECKED HER BLOOD SUGAR 294. WILL BE BACK WITH INSULIN COVERAGE. PT TOLERATED WELL.
[2017-09-03] MEDS ORDERED: glipiZIDE 5 MG TAB PO SCH (12:00)
[2017-09-03] MEDS ORDERED: POTASSIUM CHLORIDE 10 MEQ TABER PO SCH (12:00)
--- NOTE | 2017-09-03 12:20 | NUR ---
DR FERGUSON HERE WITH PT. DID A RECTAL EXAM. PT TOLERATED WELL. ORIENTMAYTE STARTED A NEW IV ON R HAND 22G. IV INFUSING WELL. WILL CONTINUE TO MONITOR PT. PT EATING LUNCH NOW.
[2017-09-03] MEDS: MAG SULF 2000 MG/WATER PREMIX 50 ML IV SCH ×2 (12:50→15:02)
[2017-09-03] MEDS: metFORMIN 850 MG TAB PO SCH ×2 (12:53→16:12)
--- NOTE | 2017-09-03 13:00 | NUR ---
ADMINISTERED MAG RIDER /. ADMINISTERED SCHEDULED MEDS. TOLERATING WELL. WILL CONTINUE TO MONITOR PT.
--- NOTE | 2017-09-03 14:46 | NUR ---
09/03/17 RD INITIAL ASSESSMENT COMPLETED PLEASE REFER TO NUTRITION ASSESSMENT UNDER CARE ACTIVITY FOR ESTIMATED NUTRITIONAL NEEDS. 1. CONTINUE CCHO 60 GM DIET TOLERATED 2. PROVIDE PT WITH DIABETES NUTRITION EDUCATION 3. RD TO FOLLOW-UP 3-5 DAYS, MODERATE RISK CARITO AGUIRRE RD
[2017-09-03 16:00] VITALS: BP 135/53
--- NOTE | 2017-09-03 16:15 | NUR ---
ADMINISTERED SCHEDULED MEDS. PT TOLERATED WELL. NO SIGNS OF DISTRESS. WILL CONTINUE TO MONITOR PT.
--- NOTE | 2017-09-03 18:45 | NUR ---
PT VISITING WITH FAMILY. NO SIGNS OF DISTRESS. NO COMPLAINTS AT THIS TIME. WILL CONTINUE TO MONITOR PT.
--- NOTE | 2017-09-03 19:23 | NUR ---
ENDORSE PT TO THE HYDROCHLORIC ACID OPERATOR NURSE AT BEDSIDE FOR CONTINUITY OF CARE. PT IS IN STABLE CONDITION.
--- NOTE | 2017-09-03 19:24 | NUR ---
REPORT RECEIVED FROM AM NURSE. PT IN STABLE CONDITION. WILL CONTINUE TO MONITOR.
--- NOTE | 2017-09-03 21:16 | NUR ---
PM MEDS GIVEN. PT TOLERATED WELL. PT IV ALARMS HIGH PRESSURE FROM IV SITE. WILL CONTINUE TO MONITOR.
--- NOTE | 2017-09-03 23:05 | NUR ---
PT IV SITE INFILTRATED. PT STATES PAIN AT IV SITE. 2 ATTEMPTS WERE MADE PRIOR TO SUCCESSFUL IV INSERTION BY CRISTA ELLIOTT RN.
[2017-09-04] VITALS: BP 111/40
[2017-09-04] MEDS: NACL 0.9% 1,000 ML IV SCH (00:16)
--- NOTE | 2017-09-04 01:21 | NUR ---
IV ACCESS NOT PATENT. NS AT 120ML/HR SHOWING HIGH PRESSURE ALARM. UNABLE TO RUN FLUIDS THROUGH IV ACCESS.
--- NOTE | 2017-09-04 02:41 | NUR ---
LEFT HAND 22G IV INSERTED. PT HAS SLIGHT PAIN AT IV SITE. INSTRUCTIONS TO CALL IF NAGGING PAIN FROM THE SITE DISRUPTS SLEEP. WILL CONTINUE TO MONITOR. Addendum: 09/04/17 at 0244 by Scott Connor RN IV 22G RIGHT FA DC. CANNULA INTACT.
--- NOTE | 2017-09-04 05:00 | NUR ---
PT IS ASLEEP. NOT IN ANY ACUTE DISTRESS. AROUSABLE TO NAME. WILL CONTINUE TO MONITOR.
[2017-09-04 06:16] LABS: T4 (THYROXINE) 6.2 ug/dL (4.5-12.0)
[2017-09-04] MEDS ORDERED: glipiZIDE 5 MG TAB PO SCH (06:30)
[2017-09-04] MEDS: BLOOD GLUCOSE MONITORING 1 DEV DEV FS SCH ×4 (06:41→20:13)
[2017-09-04] MEDS: INSULIN LISPRO SLIDING SCALE 100 UNITS/ML VIAL SUBQ PRN ×4 (06:44→20:16)
[2017-09-04] MEDS: METOCLOPRAMIDE 10 MG TAB PO SCH ×3 (06:46→16:37)
[2017-09-04 07:09] LABS: BASOPHILS # (AUTO) 0.1 K/uL (0.00-0.22); BASOPHILS % (AUTO) 0.8 % (0.0-2.0); EOSINOPHILS # (AUTO) 0.2 K/uL (0-0.4); EOSINOPHILS % (AUTO) 2.9 % (0.0-4.0); HEMATOCRIT 22.1 % (36-48); LYMPHOCYTES % (AUTO) 29.3 % (20.5-51.1); MEAN CORPUSCULAR HEMOGLOBIN 17 pg (27-31); MEAN CORPUSCULAR HGB CONC 30 g/dL (33-37); MEAN CORPUSCULAR VOLUME 57.7 fL (80-94); MONOCYTES # (AUTO) 0.5 K/uL (0.8-1.0); MONOCYTES % (AUTO) 6.6 % (1.7-9.3); NEUTROPHILS # (AUTO) 4.2 K/uL (1.8-7.7); NEUTROPHILS % (AUTO) 60.4 % (42.2-75.2); PLATELET COUNT (AUTO) 317 K/uL (140-450); RED BLOOD CELL COUNT(AUTO) 3.83 MIL/uL (4.20-5.40); RED CELL DISTRIBUTION WIDTH 20.5 % (11.6-13.7); WHITE BLOOD COUNT (AUTO) 6.9 K/uL (4.8-10.8)
[2017-09-04 07:13] LABS: ANION GAP 12.8 (8-16); CARBON DIOXIDE 21.9 mmol/L (21-32); CREATININE 0.7 mg/dL (0.6-1.3); POTASSIUM 3.7 mmol/L (3.5-5.1)
[2017-09-04 07:14] LABS: FOLIC ACID 12.4 ng/mL (>3.0)
[2017-09-04 07:20] LABS: HEMOGLOBIN 6.5 g/dL (12.0-16.0); MAGNESIUM 1.8 mg/dL (1.8-2.4); PHOSPHORUS 3.3 mg/dL (2.5-4.9)
--- NOTE | 2017-09-04 07:30 | NUR ---
RECEIVED PT REPORT FROM THE SURGICAL SERVICES DIRECTOR NURSE AT BEDSIDE. PT IS AWAKE, ALERT AND ORIENTEDX4. PT IS ON MS, AMBULATORY, SKIN INTACT, LBM: 09/03/17, IV ON LEFT HAND 22G, RUNNING NS, PATENT, INTACT, ASYMPTOMATIC. V/S WITHIN NORMAL RANGE. DENIES ANY PAIN AT THIS TIME. SAFETY PRECAUTIONS IN PLACE. WILL CONTINUE TO MONITOR PT.
--- NOTE | 2017-09-04 07:30 | NUR ---
REPORT GIVEN TO AM NURSE. PT IN STABLE CONDITION.
--- NOTE | 2017-09-04 07:39 | NUR ---
RECEIVED CRITICAL LAB RESULT OF H/H=6.5/22.1 AT 0720.EDGAR ROGERS
--- NOTE | 2017-09-04 07:40 | NUR ---
PT IS HEPLOCKED.
[2017-09-04 08:00] VITALS: BP 126/47
[2017-09-04] MEDS ORDERED: INSULIN LANTUS 100 UNITS/ML 10 ML VIAL SUBQ SCH (09:00)
[2017-09-04] MEDS: metFORMIN 850 MG TAB PO SCH ×3 (09:32→16:37)
[2017-09-04] MEDS: FERROUS GLUCONATE 324 MG TAB PO SCH ×2 (09:32→20:14)
[2017-09-04] MEDS ORDERED: POTASSIUM CHLORIDE 10 MEQ TABER PO ONE (12:20)
[2017-09-04] MEDS ORDERED: MAG SULF 2000 MG/WATER PREMIX 100 ML IV ONE (12:20)
--- NOTE | 2017-09-04 12:30 | NUR ---
PT DENIES PAIN AND NAUSEA, NO S/S OF ACUTE DISTRESS.
[2017-09-04] MEDS ORDERED: SODIUM FERRIC GLUCONATE 125 MG in NACL 0.9% 100 ML IV SCH (13:00)
[2017-09-04] MEDS ORDERED: MAGNESIUM OXIDE 400 MG TAB PO SCH (13:00)
[2017-09-04 14:29] LABS: HEMATOCRIT 22.6 % (36-48); MEAN CORPUSCULAR HEMOGLOBIN 17 pg (27-31); MEAN CORPUSCULAR HGB CONC 29 g/dL (33-37); MEAN CORPUSCULAR VOLUME 58.1 fL (80-94); PLATELET COUNT (AUTO) 328 K/uL (140-450); RED BLOOD CELL COUNT(AUTO) 3.88 MIL/uL (4.20-5.40); WHITE BLOOD COUNT (AUTO) 7.5 K/uL (4.8-10.8)
[2017-09-04 14:37] LABS: HEMOGLOBIN 6.6 g/dL (12.0-16.0)
[2017-09-04 16:00] VITALS: BP 122/50
[2017-09-04] MEDS ORDERED: MAGNESIUM CITRATE 300 ML BTL PO SCH (17:00)
--- NOTE | 2017-09-04 17:10 | NUR ---
PT AND HER DAUGHTER WERE TAUGHT HOW TO GIVE INSULIN THRU DEMO AND DISCUSSION. PT AND HER DAUGHTER VERBALIZED UNDERSTANDING.
--- NOTE | 2017-09-04 18:00 | NUR ---
PT HAD A BM AFTER MAGNESIUM CITRATE, OCCULT BLOOD SPECIMEN COLLECTED.
[2017-09-04 18:03] LABS: EOSINOPHILS % (MANUAL) 1 % (0-4); LYMPHOCYTES % (MANUAL) 23 % (20-46); MONOCYTES % (MANUAL) 8 % (5-12)
--- NOTE | 2017-09-04 19:25 | NUR ---
REPORT GIVEN TO APPLICATIONS DEVELOPER NURSE AT BEDSIDE. PT IN STABLE CONDITION.
--- NOTE | 2017-09-04 19:27 | NUR ---
RECEIVED REPORT FROM RN. PT RESTING IN BED. AAOX4. NO S/S OF ACUTE DISTRESS. PT DENIES PAIN. IV SITE PATENT AND INTACT. CALL LIGHT WITHIN REACH. SAFETY MEASURES ENSURED. WILL CONTINUE TO MONITOR.
--- NOTE | 2017-09-04 23:30 | NUR ---
REPORT GIVEN TO NANCY SPENCER.
[2017-09-05] VITALS: BP 122/45
[2017-09-05] MEDS ORDERED: SODIUM FERRIC GLUCONATE 125 MG in NACL 0.9% 100 ML IV SCH (03:45)
[2017-09-05] MEDS ORDERED: SODIUM FERRIC GLUCONATE 12.5 MG/ML AMP IV ONE (04:57)
[2017-09-05 06:22] LABS: BASOPHILS # (AUTO) 0.1 K/uL (0.00-0.22); BASOPHILS % (AUTO) 0.9 % (0.0-2.0); EOSINOPHILS # (AUTO) 0.3 K/uL (0-0.4); EOSINOPHILS % (AUTO) 3.5 % (0.0-4.0); HEMATOCRIT 22.5 % (36-48); LYMPHOCYTES # (AUTO) 2.7 K/uL (2.5-16.5); LYMPHOCYTES % (AUTO) 33.5 % (20.5-51.1); MEAN CORPUSCULAR HEMOGLOBIN 18 pg (27-31); MEAN CORPUSCULAR HGB CONC 30 g/dL (33-37); MEAN CORPUSCULAR VOLUME 58.8 fL (80-94); MONOCYTES # (AUTO) 0.6 K/uL (0.8-1.0); MONOCYTES % (AUTO) 7.9 % (1.7-9.3); NEUTROPHILS # (AUTO) 4.4 K/uL (1.8-7.7); NEUTROPHILS % (AUTO) 54.2 % (42.2-75.2); PLATELET COUNT (AUTO) 335 K/uL (140-450); RED BLOOD CELL COUNT(AUTO) 3.83 MIL/uL (4.20-5.40); WHITE BLOOD COUNT (AUTO) 8.1 K/uL (4.8-10.8)
[2017-09-05] MEDS: METOCLOPRAMIDE 10 MG TAB PO SCH ×3 (06:29→15:56)
[2017-09-05] MEDS: BLOOD GLUCOSE MONITORING 1 DEV DEV FS SCH ×3 (06:33→16:01)
[2017-09-05 06:34] LABS: PHOSPHORUS 3.2 mg/dL (2.5-4.9)
[2017-09-05] MEDS: INSULIN LISPRO SLIDING SCALE 100 UNITS/ML VIAL SUBQ PRN ×3 (06:34→17:44)
[2017-09-05 06:48] LABS: MAGNESIUM 1.8 mg/dL (1.8-2.4)
--- NOTE | 2017-09-05 07:15 | NUR ---
CHANGE OF SHIFT REPORT TIMMY MARTINEZ RN DAY NURSE PT IN STABLE CONDITION
--- NOTE | 2017-09-05 07:30 | NUR ---
RECEIVED PT REPORT FROM THE BULB PLANTER NURSE AT BEDSIDE. PT IS AWAKE, ALERT AND ORIENTEDX4. PT IS ON MS, AMBULATORY, SKIN INTACT, IV ON LEFT HAND 22G, SL, ASYMPTOMATIC. V/S WITHIN NORMAL RANGE. DENIES ANY PAIN AT THIS TIME. SAFETY PRECAUTIONS IN PLACE. WILL CONTINUE TO MONITOR PT.
[2017-09-05 07:50] LABS: HEMOGLOBIN 6.7 g/dL (12.0-16.0)
[2017-09-05 08:00] VITALS: BP 122/47
[2017-09-05 08:38] LABS: ANION GAP 12.9 (8-16); CARBON DIOXIDE 22.9 mmol/L (21-32); CREATININE 0.7 mg/dL (0.6-1.3); POTASSIUM 3.8 mmol/L (3.5-5.1)
[2017-09-05] MEDS ORDERED: MAGNESIUM OXIDE 400 MG TAB PO SCH ×2 (08:49→09:00)
[2017-09-05] MEDS: FERROUS GLUCONATE 324 MG TAB PO SCH (08:59)
[2017-09-05] MEDS: metFORMIN 850 MG TAB PO SCH ×3 (09:00→15:57)
[2017-09-05] MEDS ORDERED: ASCORBIC ACID 500 MG TAB PO SCH (09:00)
[2017-09-05] MEDS ORDERED: ACETAMINOPHEN EXTRA STRENGTH 500 MG TAB PO SCH (09:00)
[2017-09-05] MEDS ORDERED: INSULIN LANTUS 100 UNITS/ML 10 ML VIAL SUBQ SCH (09:06)
[2017-09-05] MEDS ORDERED: LANTUS SUBQ (09:22)
[2017-09-05] MEDS ORDERED: VITC500 PO (09:22)
[2017-09-05] MEDS ORDERED: METF850T PO (09:22)
[2017-09-05] MEDS ORDERED: GLUC-805 FS (09:22)
[2017-09-05] MEDS ORDERED: HUMSLIDE SUBQ (09:22)
[2017-09-05] MEDS ORDERED: METO10TA98 PO (09:22)
[2017-09-05] MEDS ORDERED: FERR324T11 PO (09:24)
--- NOTE | 2017-09-05 09:55 | NUR ---
NEW IV INSERTED TO RIGHT FA 20G FOR BLOOD TRANSFUSION.
--- NOTE | 2017-09-05 14:25 | NUR ---
NOTIFIED DR VILLATORO THAT BLOOD TRANSFUSION HAS BEEN FINISHED.
[2017-09-05 16:00] VITALS: BP 126/57
[2017-09-05 16:00] LABS: BASOPHILS # (AUTO) 0.1 K/uL (0.00-0.22); BASOPHILS % (AUTO) 0.8 % (0.0-2.0); EOSINOPHILS # (AUTO) 0.2 K/uL (0-0.4); EOSINOPHILS % (AUTO) 2.3 % (0.0-4.0); HEMATOCRIT 26.1 % (36-48); HEMOGLOBIN 7.9 g/dL (12.0-16.0); LYMPHOCYTES # (AUTO) 1.9 K/uL (2.5-16.5); LYMPHOCYTES % (AUTO) 23.5 % (20.5-51.1); MEAN CORPUSCULAR HEMOGLOBIN 19 pg (27-31); MEAN CORPUSCULAR HGB CONC 30 g/dL (33-37); MEAN CORPUSCULAR VOLUME 61.9 fL (80-94); MONOCYTES # (AUTO) 0.7 K/uL (0.8-1.0); MONOCYTES % (AUTO) 8.1 % (1.7-9.3); NEUTROPHILS # (AUTO) 5.4 K/uL (1.8-7.7); NEUTROPHILS % (AUTO) 65.3 % (42.2-75.2); PLATELET COUNT (AUTO) 319 K/uL (140-450); RED BLOOD CELL COUNT(AUTO) 4.22 MIL/uL (4.20-5.40); RED CELL DISTRIBUTION WIDTH 24.4 % (11.6-13.7); WHITE BLOOD COUNT (AUTO) 8.3 K/uL (4.8-10.8)
[2017-09-05] MEDS ORDERED: PNEUMOCOCCAL VACCINE 23 MCG/0.5 ML VIAL IMVAC SCH (17:35)
[2017-09-05] MEDS ORDERED: MIDAZOLAM 2 MG/2 ML VIAL ONE (18:29)
--- NOTE | 2017-09-05 18:50 | NUR ---
PT DISCHARGED PER MD ORDER. DISCHARGE INSTRUCTIONS AND MEDICATION TEACHING GIVEN. PT AND HER DAUGHTER VERBALIZED UNDERSTANDING. PT STATED SHE WILL GO TO [facility] FOR RX. RX GIVEN. MADE PT AWARE OF THE SCHEDULED MD APPOINTMENT. IV CATHS REMOVED,TIPS ARE INTACT, PRESSURE APPLIED. PT LEFT WITH ALL HER BELONGINGS AND IN STABLE CONDITION. PT WALKED TO LOBBY WITH JENA AND HER DAUGHTER.
[2017-09-05] MEDS ORDERED: fentaNYL 0.05 MG/ML VIAL ONE (19:05)
[2017-09-06] MEDS ORDERED: INSULIN LANTUS 100 UNITS/ML 10 ML VIAL SUBQ SCH ×2 (09:00)
== END 2017-09-05 18:55 | disposition home or self-care (01) | DRG 425 ==
LOC: MED 18:26 → MTU 23:20
PROVIDERS: ADMIT General Practice; ATTEND General Practice
PROC: 30233N1 Transfusion of Nonautologous Red Blood Cells into Peripheral Vein, Percutaneous Approach (ICD-10-PCS; principal; 2017-09-05)
PROC: 3E0234Z Introduction of Serum, Toxoid and Vaccine into Muscle, Percutaneous Approach (ICD-10-PCS; 2017-09-05)
DX: E87.1 Hypo-osmolality and hyponatremia (principal); N17.0 Acute kidney failure with tubular necrosis; E11.00 Type 2 diabetes mellitus with hyperosmolarity without nonketotic hyperglycemic-hyperosmolar coma (NKHHC); D50.9 Iron deficiency anemia, unspecified; E87.8 Other disorders of electrolyte and fluid balance, not elsewhere classified; E11.65 Type 2 diabetes mellitus with hyperglycemia; E83.42 Hypomagnesemia; E87.6 Hypokalemia; E66.9 Obesity, unspecified; J45.909 Unspecified asthma, uncomplicated; M19.90 Unspecified osteoarthritis, unspecified site; F41.9 Anxiety disorder, unspecified; Z68.34 Body mass index [BMI] 34.0-34.9, adult; Z79.84 Long term (current) use of oral hypoglycemic drugs; Z79.899 Other long term (current) drug therapy; Z90.49 Acquired absence of other specified parts of digestive tract; Z23 Encounter for immunization; E44.1 Mild protein-calorie malnutrition
CPT/HCPCS: 36415; 71045; 80048; 80053; 80305; 81001; 82009; 82150; 82272; 82607; 82728; 82746; 82948; 83036; 83540; 83690; 83735; 83880; 84100; 84436; 84443; 84479; 85025; 85045; 85610; 85730; 86886; 86900; 86901; 86920; 87081; 90732; 93005; 93925; 93970; 99285; J1815; J2250; J2916; J3010; J3475; J7030; J8597; P9016; Q0092; Q0163

== ENCOUNTER 2018-08-22 19:01 | Emergency (ER) | payer MEDICAID, OTHER ==
[~2018-08-22] VITALS: Ht 152.4 cm; Wt 82.1 kg
[~2018-08-22 19:01] MED LIST changes: -ACET-2619 PO; -CLIN300C2 PO; -DOCU-300 PO; +GLUC-805 FS; +HUMSLIDE SUBQ; -LACT1.4C PO; +LANTUS SUBQ; -LEVO750T2 PO; +METF850T PO; +METO10TA98 PO; +VITC500 PO; -[UNRECOGNIZED DRUG - CODE] PO
[2018-08-22 19:08] VITALS: BP 158/74
--- NOTE | 2018-08-22 19:13 | NUR ---
PT AMBULATED TO ER BED 09
--- NOTE | 2018-08-22 19:15 | NUR ---
RECEIVED REPORT FROM NANCY GALLEGOS.
--- NOTE | 2018-08-22 19:20 | NUR ---
63 Y.O. FEMALE, AAO x 4, BIB SELF, W C/O MOUTH PAIN RADIATING TO THE LEFT NECK. LEFT-SIDED FACIAL DROOP SINCE LAST NIGHT. DENIES N/V/D; SKIN IS PINK/WARM/DRY; AAOX4 WITH EVEN AND STEADY GAIT; HR EVEN AND REGULAR; PT DENIES ANY FEVER, CP, SOB, OR COUGH AT THIS TIME; PATIENT STATES PAIN OF 10/10 AT THIS TIME; VSS; PATIENT POSITIONED FOR COMFORT; BED DOWN. ER MD MADE AWARE OF PT STATUS.
--- NOTE | 2018-08-22 19:23 | NUR ---
DR. GILLILAND EVALUATING AT BEDSIDE.
--- NOTE | 2018-08-22 19:28 | NUR ---
PT TAKEN TO CT FOR CODE BRAIN WITH AIMEE CRUZ
--- NOTE | 2018-08-22 19:39 | NUR ---
EMT PERFORMING EKG AT BEDSIDE.
--- NOTE | 2018-08-22 19:39 | NUR ---
PT RETURNED FROM CT. AWAKE, ALERT, ORIENTED X 4. VSS.
--- NOTE | 2018-08-22 19:40 | NUR ---
LAB AT BEDSIDE
[2018-08-22] MEDS ORDERED: ACYCLOVIR 200 MG CAP PO ONE (19:55)
[2018-08-22] MEDS ORDERED: predniSONE 20 MG TAB PO ONE (19:55)
[2018-08-22 19:59] LABS: BASOPHILS % (AUTO) 0.7 % (0.0-2.0); EOSINOPHILS # (AUTO) 0.1 K/uL (0-0.4); EOSINOPHILS % (AUTO) 1.9 % (0.0-4.0); HEMATOCRIT 31.3 % (36-48); HEMOGLOBIN 10.4 g/dL (12.0-16.0); LYMPHOCYTES # (AUTO) 1.6 K/uL (2.5-16.5); LYMPHOCYTES % (AUTO) 26.4 % (20.5-51.1); MEAN CORPUSCULAR HEMOGLOBIN 26 pg (27-31); MEAN CORPUSCULAR HGB CONC 33 g/dL (33-37); MEAN CORPUSCULAR VOLUME 78.9 fL (80-94); MONOCYTES # (AUTO) 0.7 K/uL (0.8-1.0); MONOCYTES % (AUTO) 11.5 % (1.7-9.3); NEUTROPHILS # (AUTO) 3.5 K/uL (1.8-7.7); NEUTROPHILS % (AUTO) 59.5 % (42.2-75.2); PLATELET COUNT (AUTO) 341 K/uL (140-450); RED BLOOD CELL COUNT(AUTO) 3.97 MIL/uL (4.20-5.40); RED CELL DISTRIBUTION WIDTH 15.7 % (11.6-13.7); WHITE BLOOD COUNT (AUTO) 5.9 K/uL (4.8-10.8)
--- NOTE | 2018-08-22 20:05 | NUR ---
STAT HEAD CT IMPRESSION: No acute intracranial abnormality. ERMD NOTIFIED.
[2018-08-22 20:07] LABS: ANION GAP 12.2 (8-16); CARBON DIOXIDE 26.4 mmol/L (21-32); CREATININE 0.7 mg/dL (0.6-1.3); POTASSIUM 3.6 mmol/L (3.5-5.1)
[2018-08-22 20:16] LABS: ALBUMIN 2.2 g/dL (3.4-5.0); TOTAL BILIRUBIN 0.2 mg/dL (0.0-1.0)
[2018-08-22 20:18] LABS: APPEARANCE,URINE CLEAR (CLEAR); BILIRUBIN,URINE NEGATIVE (NEGATIVE); BLOOD, URINE 2+ (NEGATIVE); COLOR,URINE YELLOW (YELLOW); LEUKOCYTE ESTERASE ,URINE NEGATIVE (NEGATIVE); NITRITE, URINE NEGATIVE (NEGATIVE); UGLUCOSE 2+ (NEGATIVE)
[2018-08-22 20:27] LABS: RBC,URINE TOO NUMEROUS TO COUN /HPF (0-5); WBC,URINE 0-5 /HPF (0-5)
--- NOTE | 2018-08-22 20:30 | NUR ---
Patient discharged with v/s stable. Written and verbal after care instructions given and explained. Patient alert, oriented and verbalized understanding of instructions. Ambulatory with steady gait. All questions addressed prior to discharge. ID band removed. Patient advised to follow up with PMD in 2-3 days and return to ER if symptoms worsen. Rx of Prednisone and Valtrex given. Patient educated on indication of medication including possible reaction and side effects. Opportunity to ask questions provided and answered.
[2018-08-22 20:35] VITALS: BP 139/83
== END 2018-08-22 20:30 | disposition home or self-care (01) ==
LOC: MED 19:01
DX: G51.0 Bell's palsy (principal); D64.9 Anemia, unspecified; R03.0 Elevated blood-pressure reading, without diagnosis of hypertension; M54.2 Cervicalgia; E11.9 Type 2 diabetes mellitus without complications; Z79.4 Long term (current) use of insulin; Z79.899 Other long term (current) drug therapy
CPT/HCPCS: 36415; 70450; 71045; 80053; 81001; 84484; 85025; 99284; J7512; Q0092; 93005

== ENCOUNTER 2018-08-24 16:52 | Observation (INO) | payer OTHER ==
[~2018-08-24] VITALS: Ht 152.4 cm; Wt 79.4 kg
[2018-08-24 17:00] VITALS: BP 107/64
--- NOTE | 2018-08-24 17:16 | NUR ---
Patient transferred to bed 10. RN evaluating patient at bedside.
--- NOTE | 2018-08-24 17:24 | NUR ---
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
[2018-08-24] MEDS ORDERED: MORPHINE SULFATE 4 MG/ML SYR IVP ONE (17:35)
[2018-08-24] MEDS ORDERED: GABA300C PO (17:43)
[2018-08-24] MEDS ORDERED: METF1000 PO (17:43)
[2018-08-24] MEDS ORDERED: PRED20TA5 PO (17:43)
[2018-08-24] MEDS ORDERED: VITD1000 PO (17:43)
[2018-08-24] MEDS ORDERED: FERR325E14 PO (17:43)
[2018-08-24] MEDS ORDERED: NAPR-54 PO (17:43)
[2018-08-24] MEDS ORDERED: VALA1TAB2 PO (17:43)
[2018-08-24] MEDS ORDERED: LISI-420 PO (17:43)
[2018-08-24 18:05] LABS: BASOPHILS # (AUTO) 0.1 K/uL (0.00-0.22); BASOPHILS % (AUTO) 0.7 % (0.0-2.0); EOSINOPHILS # (AUTO) 0.1 K/uL (0-0.4); HEMATOCRIT 32.6 % (36-48); HEMOGLOBIN 10.9 g/dL (12.0-16.0); LYMPHOCYTES # (AUTO) 2.5 K/uL (2.5-16.5); LYMPHOCYTES % (AUTO) 31.2 % (20.5-51.1); MEAN CORPUSCULAR HEMOGLOBIN 26 pg (27-31); MEAN CORPUSCULAR HGB CONC 33 g/dL (33-37); MEAN CORPUSCULAR VOLUME 78.5 fL (80-94); MONOCYTES # (AUTO) 0.6 K/uL (0.8-1.0); MONOCYTES % (AUTO) 7.6 % (1.7-9.3); NEUTROPHILS # (AUTO) 4.7 K/uL (1.8-7.7); NEUTROPHILS % (AUTO) 59.5 % (42.2-75.2); PLATELET COUNT (AUTO) 381 K/uL (140-450); RED BLOOD CELL COUNT(AUTO) 4.15 MIL/uL (4.20-5.40); RED CELL DISTRIBUTION WIDTH 15.4 % (11.6-13.7)
--- NOTE | 2018-08-24 18:07 | NUR ---
PT UP TO RESTROOM---CURRENTLY STATES SHE ALMOST HAS NOT CP 04/16 ; MORPHINE IV HELD AT THIS TIME----HOLDING CONVERSATION WITH SON AT BEDSIDE
[2018-08-24 18:18] LABS: ANION GAP 9.4 (8-16); CARBON DIOXIDE 30.4 mmol/L (21-32); CREATININE 0.7 mg/dL (0.6-1.3); POTASSIUM 3.8 mmol/L (3.5-5.1)
[2018-08-24 18:19] LABS: PROTHROMBIN TIME 9.3 secs (10.8-13.4)
[2018-08-24 18:24] LABS: ALBUMIN 2.3 g/dL (3.4-5.0); TOTAL BILIRUBIN 0.1 mg/dL (0.0-1.0)
--- NOTE | 2018-08-24 19:15 | NUR ---
ASSUMED CARE OF PT FROM NANCY WEST.
[2018-08-24 19:16] LABS: APPEARANCE,URINE HAZY (CLEAR); BILIRUBIN,URINE 1+ (NEGATIVE); BLOOD, URINE 1+ (NEGATIVE); COLOR,URINE DARK YELLOW (YELLOW); LEUKOCYTE ESTERASE ,URINE NEGATIVE (NEGATIVE); NITRITE, URINE NEGATIVE (NEGATIVE); UGLUCOSE NEGATIVE (NEGATIVE)
[2018-08-24 19:25] LABS: RBC,URINE 0-5 /HPF (0-5); WBC,URINE 0-5 /HPF (0-5)
[2018-08-24] MEDS ORDERED: INSULIN LISPRO SLIDING SCALE 100 UNITS/ML VIAL SUBQ PRN (21:05)
[2018-08-24] MEDS ORDERED: DEXTROSE 50% 50 ML SYR IVP PRN (21:05)
[2018-08-24] MEDS ORDERED: HYDROcodone/APAP 5/325 MG 1 TAB TAB PO PRN (21:10)
[2018-08-24] MEDS ORDERED: MORPHINE SULFATE 4 MG/ML SYR IVP PRN (21:10)
[2018-08-24] MEDS ORDERED: ALBUTEROL 0.083% 2.5 MG/3 ML NEBU INH PRN (21:10)
[2018-08-24] MEDS ORDERED: ACETAMINOPHEN 325 MG TAB PO PRN (21:10)
[2018-08-24] MEDS ORDERED: ONDANSETRON 4 MG/2 ML VIAL IVP PRN (21:10)
[2018-08-24] MEDS ORDERED: POLYVINYL ALCOHOL 1.4% OP 15 ML SOL OP PRN (21:10)
--- NOTE | 2018-08-24 21:11 | NUR ---
AWAITING ADMITING ORDERS FROM MD. PT DENIES ANY NEW COMPLAINTS OR CONCERNS AT THIS TIME. DENIES PAIN. REMAINS ATTACHED TO CONTINUOUS CARDIAC MONITORING. WILL CONTINUE TO ASSESS.
--- NOTE | 2018-08-24 21:59 | NUR ---
Patient will be admitted to care of DR SIMMONS. Admited to TELE. Will go to room 123-B. Belongings list completed. Report to NANCY CATHERINE.
--- NOTE | 2018-08-24 22:45 | NUR ---
RECEIVED PATIENT FROM ER VIA GURNEY, PATIENT AMBULATED TO BED, GAIT STEADY. PATIENT IS ALERT AND ORIENTED X 4, NO SIGNS OF DISTRESS ON RA, NO C/O PAIN AT THIS TIME. SKIN INTACT. CHANGED GOWN TO YELLOW GOWN, PLACED FALL RISK BRACELET AND YELLOW SOCKS ON PATIENT, AND FALLING SIGN ON THE DOOR, BED ALARM ON. ORIENTED PATIENT TO ROOM AND UNIT, PLACED CALL LIGHT IN REACH, BED LOW. PATIENT HAS LEFT SIDED FACIAL DROOP SECONDARY TO [facility] [place]SY.
[2018-08-25] VITALS: BP 144/63
--- NOTE | 2018-08-25 00:19 | NUR ---
PATIENT RESTING IN BED, NO SIGNS OF DISTRESS ON RA. CALL LIGHT IN REACH. WILL CONTINUE TO MONITOR.
--- NOTE | 2018-08-25 02:30 | NUR ---
PATIENT SLEEPING. NO SIGNS OF DISTRESS ON RA. WILL CONTINUE TO MONITOR.
[2018-08-25 04:00] VITALS: BP 141/59
--- NOTE | 2018-08-25 04:15 | NUR ---
VITALS STABLE, PATIENT SLEEPING, NO SIGNS OF DISTRESS.
[2018-08-25] MEDS ORDERED: VALACYCLOVIR HCL 1 GM PO SCH (05:00)
[2018-08-25 06:02] LABS: BASOPHILS % (AUTO) 0.7 % (0.0-2.0); EOSINOPHILS # (AUTO) 0.1 K/uL (0-0.4); EOSINOPHILS % (AUTO) 1.7 % (0.0-4.0); HEMATOCRIT 30.7 % (36-48); HEMOGLOBIN 10.3 g/dL (12.0-16.0); LYMPHOCYTES % (AUTO) 29.6 % (20.5-51.1); MEAN CORPUSCULAR HEMOGLOBIN 26 pg (27-31); MEAN CORPUSCULAR HGB CONC 33 g/dL (33-37); MEAN CORPUSCULAR VOLUME 78.2 fL (80-94); MONOCYTES # (AUTO) 0.6 K/uL (0.8-1.0); MONOCYTES % (AUTO) 9.1 % (1.7-9.3); NEUTROPHILS # (AUTO) 3.9 K/uL (1.8-7.7); NEUTROPHILS % (AUTO) 58.9 % (42.2-75.2); PLATELET COUNT (AUTO) 339 K/uL (140-450); RED BLOOD CELL COUNT(AUTO) 3.92 MIL/uL (4.20-5.40); RED CELL DISTRIBUTION WIDTH 15.6 % (11.6-13.7); WHITE BLOOD COUNT (AUTO) 6.6 K/uL (4.8-10.8)
[2018-08-25 06:25] LABS: ANION GAP 7.3 (8-16); CARBON DIOXIDE 29.2 mmol/L (21-32); CREATININE 0.6 mg/dL (0.6-1.3); POTASSIUM 3.5 mmol/L (3.5-5.1)
--- NOTE | 2018-08-25 06:30 | NUR ---
PATIENT IS SLEEPING, NO SIGNS OF DISTRESS ON RA, SAFETY PRECAUTIONS IN PLACE.
[2018-08-25 06:40] LABS: MAGNESIUM 1.5 mg/dL (1.8-2.4); PHOSPHORUS 4.5 mg/dL (2.5-4.9)
--- NOTE | 2018-08-25 07:25 | NUR ---
GAVE BEDSIDE REPORT TO DAY SHIFT RNSTEPHANIA. PATIENT IN STABLE CONDITION.
--- NOTE | 2018-08-25 07:26 | NUR ---
RECEIVED REPORT FROM REDEVELOPMENT SPECIALIST NURSE. PATIENT LYING DOWN IN BED SLEEPING, AROUSABLE BY VOICE. NO DISTRESS NOTED. DENIES ANY PAIN. RESPIRATIONS EVEN, UNLABORED, ON ROOM AIR. IV SITE INTACT, PATENT, ON SALINE LOCK. AAOX4, CALM, COOPERATIVE, SKIN COLOR APPROPRIATE TO ETHNICITY, WARM TO TOUCH. SKIN INTACT. HAS LEFT SIDE FACIAL DROOP NOTED. REVIEWED PLAN OF CARE WITH PATIENT. PATIENT VERBALIZED UNDERSTANDING. SAFETY MEASURES IN PLACE, CALL LIGHT WITHIN REACH. WILL CONTINUE TO MONITOR.
[2018-08-25] MEDS ORDERED: METOCLOPRAMIDE HCL 10 MG PO SCH (07:30)
[2018-08-25 08:00] VITALS: BP 160/64
[2018-08-25] MEDS: BLOOD GLUCOSE MONITORING 1 DEV DEV FS SCH ×2 (08:26→12:07)
[2018-08-25] MEDS: METOCLOPRAMIDE 10 MG TAB PO SCH ×2 (08:53→12:05)
[2018-08-25] MEDS: FERROUS SULFATE 325 MG TABEC PO SCH ×2 (08:53→12:05)
--- NOTE | 2018-08-25 08:55 | NUR ---
PATIENT SITTING IN BED. NO DISTRESS NOTED. DENIES ANY PAIN. SCHEDULED MEDICATIONS DUE GIVEN. WILL CONTINUE TO MONITOR.
[2018-08-25] MEDS ORDERED: CHOLECALCIFEROL 1,000 IU TAB PO SCH (09:00)
[2018-08-25] MEDS ORDERED: ENOXAPARIN 40 MG/0.4 ML SYR SUBQ SCH (09:00)
[2018-08-25] MEDS ORDERED: NAPROXEN 500 MG TAB PO SCH (09:00)
[2018-08-25] MEDS ORDERED: GABAPENTIN 300 MG CAP PO SCH (09:00)
[2018-08-25] MEDS ORDERED: LISINOPRIL 20 MG TAB PO SCH (09:00)
[2018-08-25] MEDS ORDERED: ASPIRIN 81 MG TAB.CHEW PO SCH (09:00)
[2018-08-25] MEDS ORDERED: INSULIN LANTUS 100 UNITS/ML 10 ML VIAL SUBQ SCH (09:00)
[2018-08-25] MEDS ORDERED: predniSONE 20 MG TAB PO SCH (09:00)
--- NOTE | 2018-08-25 09:02 | NUR ---
PATIENT HAS BEEN SCREENED AND CATEGORIZED MODERATE NUTRITION RISK. PATIENT WILL BE SEEN WITHIN 3-5 DAYS OF ADMISSION. 08/27/18[address]
[2018-08-25 12:00] VITALS: BP 139/64
--- NOTE | 2018-08-25 12:07 | NUR ---
PATIENT LYING DOWN IN BED SLEEPING, AROUSABLE BY VOICE. NO DISTRESS NOTED. DENIES ANY PAIN. SCHEDULED MEDICATIONS DUE GIVEN. WILL CONTINUE TO MONITOR.
--- NOTE | 2018-08-25 16:12 | NUR ---
PATIENT DAUGHTER AT BEDSIDE. ABLE TO TAKE PATIENT HOME, HOWEVER, HAS TO GO TO WORK SOON AND WILL NOT BE ABLE TO TAKE PATIENT HOME LATER AFTER DR. VINSON EVALUATES PATIENT LATER TONIGHT. PAGED DR. MTZ. PER DR. MTZ, HE IS COMFORTABLE IN SENDING PATIENT HOME WITHOUT SYSTEMS DEVELOPMENT MANAGER CONSULT DUE TO PATIENT NOT COMPLAINING OF CHEST PAIN THROUGHOUT LAST NIGHT AND TODAY AND TROPONINS WERE NEGATIVE. DISCHARGE INSTRUCTIONS PROVIDED TO PATIENT/DAUGHTER AT BEDSIDE IN [place], PATIENT PREFERS DAUGHTER TO TRANSLATE INSTEAD OF USING TRANSLATION SERVICES VIA PHONE. INSTRUCTIONS ON FOLLOW-UP WITH PCP, DIET REGIMEN, MEDICATION REGIMEN AND SIDE EFFECTS. ANSWERED ALL OF PATIENT/FAMILY'S QUESTIONS REGARDING DISCHARGE. IV SITE REMOVED WITH MINIMAL BLOOD AND LUMEN COMPLETELY INTACT. ID BANDS REMOVED. ALL BELONGINGS WITH PATIENT. AWAITING FOR PATIENT TO GET DRESSED. WILL CONTINUE TO MONITOR.
--- NOTE | 2018-08-25 16:30 | NUR ---
PATIENT ALL DRESSED AND READY TO GO HOME. ESCORTED PATIENT DOWN TO LOBBY VIA STEADY AMBULATION, REFUSED WHEELCHAIR. PATIENT DISCHARGED TO HOME IN PRIVATE VEHICLE WITH DAUGHTER AT THIS TIME IN STABLE CONDITION.
== END 2018-08-25 16:30 | disposition home or self-care (01) ==
LOC: MED 16:52 → MTU 21:06
PROVIDERS: ADMIT Internal Medicine Pulmonary Disease; ATTEND Internal Medicine Pulmonary Disease
DX: R07.89 Other chest pain (principal); E66.01 Morbid (severe) obesity due to excess calories
CPT/HCPCS: 36415; 71045; 80048; 80053; 81001; 82948; 83690; 83735; 84100; 84484; 85025; 85610; 87081; 87086; 93005; 93307; 94760; 96372; 99285; G0378; J1650; J1815; J7512; J8597; Q0092

== ENCOUNTER 2021-11-25 12:44 | Emergency (ER) | payer OTHER ==
[~2021-11-25] VITALS: Ht 149.9 cm; Wt 85.8 kg
[~2021-11-25 12:44] MED LIST changes: +ACET-1182 PO; +ALBU0.0912 INH; +BENZ1LOZ93 MM; +CHOL100084 PO; -FERR324T11 PO; +FERR325E14 PO; +GABA300C PO; -GLUC-805 FS; -HUMSLIDE SUBQ; +IMO2 PO; +LISI-487 PO; +METF-1274 PO; -METF850T PO; +METO-485 PO; +METO10TA11 PO; -METO10TA98 PO; +PANT40EC PO; -VITC500 PO; +ZINC220C28 PO
[2021-11-25 13:18] VITALS: BP 147/79
[2021-11-25] MEDS ORDERED: KETOROLAC 30 MG/ML VIAL IM ONE (13:45)
--- NOTE | 2021-11-25 13:45 | NUR ---
66 y/o Female BIB self for c/o right chest pain. pt states she feels it "in her lung" Pain comes and goes, denies any N/V/D at this time. NO SOB, pt denies any cardiac hx. pmhx: CHRISTIE LEE
[2021-11-25 13:52] LABS: BASOPHILS # (AUTO) 0.1 K/uL (0.00-0.22); BASOPHILS % (AUTO) 0.8 % (0.0-2.0); EOSINOPHILS # (AUTO) 0.2 K/uL (0-0.4); EOSINOPHILS % (AUTO) 1.9 % (0.0-4.0); HEMATOCRIT 31.5 % (36-48); HEMOGLOBIN 10.3 g/dL (12.0-16.0); LYMPHOCYTES % (AUTO) 22.9 % (20.5-51.1); MEAN CORPUSCULAR HEMOGLOBIN 23 pg (27-31); MEAN CORPUSCULAR HGB CONC 33 g/dL (33-37); MEAN CORPUSCULAR VOLUME 69.8 fL (80-94); MONOCYTES # (AUTO) 0.6 K/uL (0.8-1.0); MONOCYTES % (AUTO) 6.4 % (1.7-9.3); NEUTROPHILS # (AUTO) 5.9 K/uL (1.8-7.7); PLATELET COUNT (AUTO) 344 K/uL (140-450); RED CELL DISTRIBUTION WIDTH 18.5 % (11.6-13.7); WHITE BLOOD COUNT (AUTO) 8.7 K/uL (4.8-10.8)
[2021-11-25 14:16] LABS: ALBUMIN 2.8 g/dL (3.4-5.0); ANION GAP 13.4 (8-16); CARBON DIOXIDE 21.7 mmol/L (21-32); LIPASE 117 U/L (73-393); POTASSIUM 4.1 mmol/L (3.5-5.1); TOTAL BILIRUBIN 0.2 mg/dL (0.0-1.0)
--- NOTE | 2021-11-25 16:12 | NUR ---
Patient appears to be resting comfortably in bed. Vital Signs within normal limits. Respirations even and unlabored. Pt remains AOX4, GCS 15
--- NOTE | 2021-11-25 16:44 | NUR ---
Re-assessment for disposition requested for pt. Dr Hernandez at bedside to consult with pt.
[2021-11-25] MEDS ORDERED: NAPR-54 PO (16:46)
[2021-11-25 16:59] VITALS: BP 141/76
--- NOTE | 2021-11-25 17:00 | NUR ---
Patient discharged with v/s stable. Written and verbal after care instructions given and explained. Patient verbalized understanding. Ambulatory with steady gait. All questions addressed prior to discharge. Advised to follow up with PMD.
== END 2021-11-25 17:00 | disposition home or self-care (01) ==
LOC: MED 12:44
DX: S20.211A Contusion of right front wall of thorax, initial encounter (principal); R07.89 Other chest pain; N64.4 Mastodynia; E11.9 Type 2 diabetes mellitus without complications; Z79.899 Other long term (current) drug therapy; Z79.1 Long term (current) use of non-steroidal anti-inflammatories (NSAID); Z79.4 Long term (current) use of insulin; W18.39XA Other fall on same level, initial encounter; Y92.89 Other specified places as the place of occurrence of the external cause; Y93.89 Activity, other specified; Y99.8 Other external cause status
CPT/HCPCS: 36415; 71045; 80053; 83690; 83880; 84484; 85025; 93005; 96372; 99285; J1885; Q0092